=== PATIENT | male | born 1960 | race Caucasian/White ===

== ENCOUNTER 2018-09-07 14:33 | Emergency (ER) | payer OTHER ==
[2018-09-07 15:16] LABS: Absolute Lymphocytes (CBC) 1.3 K/uL (0.7-4.9); Eosinophils % 16.4 % (0-4.4); Hematocrit 42.2 % (39.6-49.0); Lymphocytes % 16.9 % (15.3-44.8); MPV 9.7 fL (7.6-11.3); Monocytes % 7.6 % (3.3-12.3); RBC Red Blood Cell Count 4.67 M/uL (4.33-5.43)
--- NOTE | 2018-09-07 15:38 | RAD REPORT ---
EXAM DESCRIPTION: CT - Head Brain Wo Cont - 09/07/2018 3:27 pm CLINICAL HISTORY: Headache COMPARISON: None TECHNIQUE: Computed axial tomography of the head was obtained. IV contrast was not requested. All CT scans are performed using dose optimization technique as appropriate and may include automated exposure control or mA/KV adjustment according to patient size. FINDINGS: An intracranial bleed is not seen . The ventricles are normal in caliber. No extra-axial fluid collection is noted. Mild to moderate low-density areas within periventricular, deep and subcortical white matter likely r epresent ischemic changes secondary to small vessel disease. Fluid within the sinuses/ mastoids is not seen. Moderate mucoperiosteal thickening left maxillary sin us consistent with chronic sinusitis IMPRESSION: No acute intracranial abnormality is seen. If patient's symptoms persist MRI of the bra in would be recommended.
[2018-09-07 15:40] LABS: BUN Blood Urea Nitrogen 10 mg/dL (7-18); Bicarbonate 27 mmol/L (21-32); Glucose Level 113 mg/dL (74-106); Potassium 3.1 mmol/L (3.5-5.1); Sodium Level 142 mmol/L (136-145)
[2018-09-07] MEDS ORDERED: HYDROCODONE/APAP 5/325 MG TAB ONE (16:19)
[2018-09-07] MEDS ORDERED: KETOROLAC 30 MG/ML INJ ONE (16:19)
--- NOTE | 2018-09-07 16:30 | RAD REPORT ---
EXAM DESCRIPTION: CTHead angio09/07/2018 4:15 pm CLINICAL HISTORY: Headache/CVA COMPARISON: None TECHNIQUE: CT angiogram of the head was obtained. 3D MIPS reconstruction performed. All CT scans are performed using dose optimization technique as appropriate and may include automated exposure control or mA/KV adjustment according to patient size. FINDINGS: The basilar, internal carotid, anterior cerebral, middle cerebral and posterior cerebral a rteries are normal caliber. An aneurysm is not seen. A significant stenosis is not noted. IMPRESSION: Unremarkable CT angiogram head.
--- NOTE | 2018-09-07 16:39 | ER ---
Nurse's Notes [facility] Name: Myron Fagan Age: 58 yrs Sex: Male : 1960 Arrival Date: 09/07/2018 Time: 14:34 Bed 7 Private MD: Diagnosis: Headache;Hypertension Presentation: 09/07 14:46 Presenting complaint: Patient states: "my blood pressure has been high all day 200/115 aa5 and I also woke up with a headache about 20 minutes ago and I never get headaches". Pt reports taking antihypertensives around 1330 today. Transition of care: patient was not received from another setting of care. Onset of symptoms was September 07, 2018. Risk Assessment: Do you want to hurt yourself or someone else? Patient reports no desire to harm self or others. Initial Sepsis Screen: Does the patient meet any 2 criteria? No. Patient's initial sepsis screen is negative. Does the patient have a suspected source of infection? No. Patient's initial sepsis screen is negative. Care prior to arrival: None. 14:46 Method Of Arrival: Ambulatory aa5 14:46 Acuity: BOOGIE 3 aa5 Historical: - Allergies: 14:49 No Known Allergies; aa5 - PMHx: 14:49 CVA; Myocardial infarction; Hypertension; Adrenal gland growth; aa5 - PSHx: 14:49 None; aa5 - Immunization history:: Flu vaccine status is unknown. - Social history:: Smoking status: Patient uses tobacco products, 1/4 pack a day . - Ebola Screening: : No symptoms or risks identified at this time. - Family history:: not pertinent. - Hospitalizations: : No recent hospitalization is reported. Screenin:10 Abuse screen: Denies threats or abuse. Denies injuries from another. Nutritional ss screening: No deficits noted. Tuberculosis screening: Never had TB. Fall Risk None identified. Assessment: 15:10 General: Appears uncomfortable, Behavior is calm, cooperative, Denies fever, feeling ss ill, fatigue, chills. Pain: Complains of pain in left catholic Pain currently is 8 out of 10 on a pain scale. Pain began Approximately 1 hour ago. Pt reports he woke up from his nap with a headache Is continuous, Noted to be intermittent grimacing. Neuro: Level of Consciousness is awake, alert, obeys commands, Oriented to person, place, time, situation, Ladder Operator are equal bilaterally Moves all extremities. Full function Gait is steady, Speech is normal, Facial symmetry appears normal, Pupils are PERRLA. Neuro: Denies weakness blurred vision dizziness, difficulty swallowing, paresthesias numbness. Cardiovascular: Capillary refill < 3 seconds is brisk in bilateral fingers Rhythm is regular. Respiratory: Airway is patent Respiratory effort is even, unlabored, Respiratory pattern is regular, symmetrical, Denies cough, shortness of breath. GI: Abdomen is round non-distended, Patient currently denies diarrhea, nausea, vomiting. : No signs and/or symptoms were reported regarding the genitourinary system. EENT: Nares are clear Oral mucosa is moist. Derm: Skin is intact, is healthy with good turgor, Skin is pink, warm \\T\\ dry. normal. Musculoskeletal: Circulation, motion, and sensation intact. Range of motion: intact in all extremities, Swelling absent. 15:20 Reassessment: PAtient to CT VIA wheelchair. Pt reports he took a "large ibuprofen" and ss full dose aspirin prior to arrival. 16:52 Reassessment: Patient appears in no apparent distress at this time. Patient and/or ss family updated on plan of care and expected duration. Pain level reassessed. Patient is alert, oriented x 3, equal unlabored respirations, skin warm/dry/pink. Patient states feeling better. Patient states symptoms have improved. Pain: Pain currently is 3 out of 10 on a pain scale. Vital Signs: 14:48 BP 157 / 92; Pulse 73; Resp 16 S; Temp 98.9(TE); Pulse Ox 96% ; Weight 83.46 kg (R); aa5 Height 5 ft. 11 in. (180.34 cm) (R); Pain 8/10; 16:32 BP 167 / 97; Pulse 78; Resp 16; Pulse Ox 98% on R/A; Pain 3/10; ss 14:48 Body Mass Index 25.66 (83.46 kg, 180.34 cm) aa5 ED Course: 14:34 Patient arrived in ED. as 14:46 Arm band placed on. aa5 14:47 Triage completed. aa5 14:51 Collins Duncan MD is Attending Physician. rn 15:02 Tammy Salinas RN is Primary Nurse. ss 15:10 Patient has correct armband on for positive identification. Bed in low position. Call ss light in reach. Side rails up X 1. 15:10 Inserted saline lock: 20 gauge in right antecubital area, using aseptic technique. ss Blood collected. Patient maintains SpO2 saturation greater than 95% on room air. 15:26 CT completed. Patient tolerated procedure well. Patient moved back from CT. bq 15:27 CT Head Brain wo Cont In Process Unspecified. EDMS 16:14 CT completed. Patient tolerated procedure well. Patient moved back from CT. mw3 16:15 CT Head Angio In Process Unspecified. EDMS 16:51 No provider procedures requiring assistance completed. IV discontinued, intact, ss bleeding controlled, No redness/swelling at site. Pressure dressing applied. Administered Medications: 16:23 Drug: TORadol - Ketorolac 15 mg Route: IVP; Site: right antecubital; ss 16:53 Follow up: Response: No adverse reaction; Medication administered at discharge. ss 16:24 Drug: [place] 5 mg-325 mg 1 tabs Route: PO; ss 16:53 Follow up: Response: No adverse reaction; Medication administered at discharge. Outcome: 16:39 Discharge ordered by . rn 16:51 Discharged to home ambulatory, with family. ss 16:51 Condition: good 16:51 Discharge instructions given to patient, family, Instructed on discharge instructions, follow up and referral plans. Demonstrated understanding of instructions, follow-up care, medications. 16:53 Patient left the ED. ss Signatures: Dispatcher [employer] EDMS Lisa Kirby Amelia as Nieto, Roman, MD MD rn Calderon, Audri, RN RN aa5 Tammy Salinas RN RN ss Willis, Michelle mw3
--- NOTE | 2018-09-07 16:40 | EDPHYS ---
Physician Documentation [facility] Name: Myron Fagan Age: 58 yrs Sex: Male : 1960 Arrival Date: 09/07/2018 Time: 14:34 Bed 7 Private MD: ED Physician Collins Duncan HPI: 09/07 15:02 This 58 yrs old Male presents to ER via Ambulatory with complaints of High rn Blood Pressure. 15:02 The patient has elevated blood pressure and discovered this at home. Onset: The rn symptoms/episode began/occurred at an unknown time. Modifying factors: The symptoms are aggravated by discontinuation of meds. Severity of symptoms: At its worst the blood pressure was severe, in the emergency department the blood pressure is improved. The patient has not experienced similar symptoms in the past. REports high blood pressure, states inconsistent medication dosing, what brought him here is that BP was 200/100 and had a headache, has never had headaches, and father dies of cerebral aneurysm. Reports headache to left denominational and left forehead. NO trauma. NO vision changes. No focal neurological complaint. NO vomiting/chest pain/sob. Took his BP med at 1300, now improving symptoms and BP but still has headache.. Historical: - Allergies: 14:49 No Known Allergies; aa5 - PMHx: 14:49 CVA; Myocardial infarction; Hypertension; Adrenal gland growth; aa5 - PSHx: 14:49 None; aa5 - Immunization history:: Flu vaccine status is unknown. - Social history:: Smoking status: Patient uses tobacco products, 1/4 pack a day . - Ebola Screening: : No symptoms or risks identified at this time. - Family history:: not pertinent. - Hospitalizations: : No recent hospitalization is reported. ROS: 15:02 Constitutional: Negative for fever, chills, and weight loss, Eyes: Negative for injury, rn pain, redness, and discharge, Neck: Negative for injury, pain, and swelling, Cardiovascular: Negative for chest pain, palpitations, and edema, Respiratory: Negative for shortness of breath, cough, wheezing, and pleuritic chest pain, Abdomen/GI: Negative for abdominal pain, nausea, vomiting, diarrhea, and constipation, MS/Extremity: Negative for injury and deformity, Skin: Negative for injury, rash, and discoloration, Neuro: Negative for weakness, numbness, tingling, and seizure. Exam: 15:02 Constitutional: This is a well developed, well nourished patient who is awake, alert, rn and in no acute distress. Ambulatory to room without difficulty or assistance Head/Face: Normocephalic, atraumatic. Eyes: Pupils equal round and reactive to light, extra-ocular motions intact. Lids and lashes normal. Conjunctiva and sclera are non-icteric and not injected. Cornea within normal limits. Periorbital areas with no swelling, redness, or edema. Cardiovascular: Regular rate and rhythm. No pulse deficits. Respiratory: Lungs have equal breath sounds bilaterally, clear to auscultation Skin: Warm, dry with normal turgor. Normal color with no rashes, no lesions, and no evidence of cellulitis. MS/ Extremity: Pulses equal, no cyanosis. Neurovascular intact. Full, normal range of motion. Equal circumference. Neuro: Awake and alert, GCS 15, oriented to person, place, time, and situation. Cranial nerves II-XII grossly intact. Motor strength 5/5 in all extremities. Sensory grossly intact. Cerebellar exam normal. Normal gait. No tenderness over temporal artery. Vital Signs: 14:48 BP 157 / 92; Pulse 73; Resp 16 S; Temp 98.9(TE); Pulse Ox 96% ; Weight 83.46 kg (R); aa5 Height 5 ft. 11 in. (180.34 cm) (R); Pain 8/10; 16:32 BP 167 / 97; Pulse 78; Resp 16; Pulse Ox 98% on R/A; Pain 3/10; ss 14:48 Body Mass Index 25.66 (83.46 kg, 180.34 cm) aa5 MDM: 14:51 Patient medically screened. rn 15:55 Differential diagnosis: hypertensive crisis, Malignant HTN, intracerebral hemorrhage. rn Differential diagnosis: aneurysm. Data reviewed: vital signs, nurses notes. Counseling: I had a detailed discussion with the patient and/or guardian regarding: the historical points, exam findings, and any diagnostic results supporting the discharge/admit diagnosis, lab results, radiology results, the need for outpatient follow up, to return to the emergency department if symptoms worsen or persist or if there are any questions or concerns that arise at home. Special discussion: I discussed with the patient/guardian in detail that at this point there is no indication for admission to the hospital. It is understood, however, that if the symptoms persist or worsen the patient needs to return immediately for re-evaluation. 16:38 ED course: CTA normal, negative ESR, will dc home with recommendation to take BP meds rn more regularly and f/u with PCP. . 16:46 ED course: Pain resolved, back to baseline. . rn 09/07 15:01 Order name: CBC with Diff rn 09/07 15:01 Order name: Basic Metabolic Panel; Complete Time: 15:41 rn 09/07 15:01 Order name: CT Head Brain wo Cont; Complete Time: 15:40 rn 09/07 15:04 Order name: Sed Rate; Complete Time: 15:49 rn 09/07 15:04 Order name: CRP; Complete Time: 15:40 rn 09/07 15:29 Order name: CBC Smear Scan EDWY 09/07 15:01 Order name: IV Start; Complete Time: 15:15 rn 09/07 15:01 Order name: EKG; Complete Time: 15:02 rn 09/07 15:01 Order name: EKG - Nurse/Tech; Complete Time: 15:15 rn 09/07 15:42 Order name: CT Head Angio; Complete Time: 16:37 rn Administered Medications: 16:23 Drug: TORadol - Ketorolac 15 mg Route: IVP; Site: right antecubital; ss 16:53 Follow up: Response: No adverse reaction; Medication administered at discharge. 16:24 Drug: [place] 5 mg-325 mg 1 tabs Route: PO; ss 16:53 Follow up: Response: No adverse reaction; Medication administered at discharge. Disposition: 09/07/18 16:39 Discharged to Home. Impression: Headache, Hypertension. - Condition is Stable. - Discharge Instructions: General Headache Without Cause, Hypertension. - Medication Reconciliation Form, Thank You Letter, Antibiotic Education, Prescription Opioid Use form. - Follow up: Private Physician; When: As needed; Reason: Recheck today's complaints, Re-evaluation by your physician. - Problem is new. - Symptoms have improved. Signatures: Dispatcher [employer] EDWY Collins Duncan MD MD rn Calderon, Audri, RN RN aaTammy Aguilera RN RN ss Corrections: (The following items were deleted from the chart) 15:05 15:02 Constitutional: This is a well developed, well nourished patient who is awake, rn alert, and in no acute distress. rn 16:53 16:39 09/07/2018 16:39 Discharged to Home. Impression: Headache; Hypertension. ss Condition is Stable. Discharge Instructions: General Headache Without Cause, Hypertension. Forms are Medication Reconciliation Form, Thank You Letter, Antibiotic Education, Prescription Opioid Use. Follow up: Private Physician; When: As needed; Reason: Recheck today's complaints, Re-evaluation by your physician. Problem is new. Symptoms have improved. rn
[2018-09-07 17:11] LABS: Blood Morphology Comment NOT SEEN (NOT SEEN); Platelet Estimate ADEQ; Urine White Blood Cell Casts OK
--- NOTE | 2018-09-07 20:09 | EKG ---
Test Date: 2018-09-07 Test Time: 15:13:46 Mechanical Manufacturing Engineer: [employer] MEASUREMENT RESULTS: Intervals: Rate: 64 ME: 152 QRSD: 92 QT: 450 QTc: 464 [place]: P: 55 ME: 152 QRS: 13 T: 43 INTERPRETIVE STATEMENTS: Normal sinus rhythm Normal ECG No previous ECG available for comparison Electronically Signed On 09-07-18 20:08:13 CDT by Donny Thomson
== END 2018-09-07 16:53 | disposition home or self-care (01) ==
LOC: ER 14:33
DX: I10 Essential (primary) hypertension (principal); R51 Headache
CPT/HCPCS: 36415; 70450; 70496; 80048; 85025; 85652; 86140; 93005; 96374; 99285; Q9967